=== PATIENT | male | born 1940 | race Caucasian/White ===

== ENCOUNTER 2019-01-06 16:20 | Emergency (ER) | payer MEDICARE ==
[~2019-01-06] VITALS: Ht 185.4 cm; Wt 80.0 kg
[2019-01-06] MEDS ORDERED: normal saline 1000ML IV soln IVB ONE (16:35)
[2019-01-06 16:51] LABS: BASOPHILS % (AUTO) 0.5 % (0-1); EOSINOPHILS # (AUTO) 0.2 X10'3 (0-0.9); EOSINOPHILS % (AUTO) 2.1 % (0-6); HEMATOCRIT 46.9 % (42.0-52.0); LYMPHOCYTES # (AUTO) 1.6 X10'3 (1.1-4.8); LYMPHOCYTES % (AUTO) 20.9 % (21-51); MEAN CORPUSCULAR HEMOGLOBIN 32.5 PG (27.0-31.0); MEAN CORPUSCULAR HGB CONC 34.1 g/dL (33.0-36.5); MEAN CORPUSCULAR VOLUME 95.4 FL (78-98); MONOCYTES # (AUTO) 0.7 X10'3 (0-0.9); MONOCYTES % (AUTO) 9.8 % (2-12); NEUTROPHILS % (AUTO) 66.7 % (42-75); PLATELET COUNT 146 X10'3 (140-440); RED BLOOD COUNT 4.92 X10'6 (4.70-6.10); RED CELL DISTRIBUTION WIDTH 13.3 % (11.5-14.5); WHITE BLOOD COUNT 7.4 X10'3 (4.5-11.0)
[2019-01-06 17:02] LABS: ALANINE AMINOTRANSFERASE 51 U/L (12-78); ALBUMIN 3.6 G/DL (3.4-5.0); ALKALINE PHOSPHATASE 122 IU/L (46-116); ANION GAP 3 (8-16); ASPARTATE AMINO TRANSFERASE 43 U/L (10-37); BILIRUBIN,TOTAL 0.5 MG/DL (0.1-1.0); BLOOD UREA NITROGEN 24 MG/DL (7-18); BUN/CREATININE RATIO 16.8 (5.4-32.0); CALCIUM 10.8 MG/DL (8.5-10.1); CHLORIDE 105 MMOL/L (99-107); CREATININE 1.43 MG/DL (0.60-1.10); PARTIAL THROMBOPLASTIN TIME 26 SECONDS (22-32); POTASSIUM 4.8 MMOL/L (3.5-5.1); SODIUM 136 MMOL/L (135-145); TOTAL CARBON DIOXIDE 27.7 MMOL/L (24-32); TOTAL PROTEIN 7.3 G/DL (6.4-8.2); eGFR 48 ML/MIN
[2019-01-06 17:05] LABS: ETHANOL < 0.010 GM/DL (0.0-0.010); TROPONIN I < 0.04 NG/ML (0.0-0.05)
[2019-01-06 17:07] LABS: GLUCOSE 90 MG/DL (70-104)
[2019-01-06 17:21] LABS: COLOR,URINE YELLOW (Yellow); GLUCOSE, URINE NEGATIVE (Neg); KETONES,URINE NEGATIVE (Neg); LEUKOCYTE ESTERASE ,URINE NEGATIVE (Neg); NITRITES, URINE NEGATIVE (Neg); OCCULT BLOOD,URINE LARGE (Neg); PROTEIN,URINE NEGATIVE (Neg)
[2019-01-06 17:31] LABS: CLARITY,URINE SLIGHTLY CLOUDY (Clear); UA COLLECTION TYPE VOIDED
[2019-01-06 17:32] LABS: RBC,URINE 20-50 /HPF (0-2); WBC,URINE 0-4 /HPF (0-4)
[2019-01-06 17:33] LABS: BACTERIA,URINE NONE SEEN /HPF (Neg); SQUAMOUS EPITHELIAL CELL,UR NONE SEEN /LPF (FEW); URINE AMPHETAMINE SCREEN NEGATIVE (Neg); URINE BARBITUATE SCREEN NEGATIVE (Neg); URINE BENZODIAZEPINES SCREEN NEGATIVE (Neg); URINE CANNABINOID SCREEN NEGATIVE (Neg); URINE COCAINE SCREEN NEGATIVE (Neg); URINE METHADONE SCREEN NEGATIVE (Neg); URINE OPIATE SCREEN NEGATIVE (Neg); URINE PHENCYCLIDINE SCREEN NEGATIVE (Neg)
[2019-01-06] MEDS ORDERED: NITR100C6 PO (18:09)
[2019-01-06 18:21] VITALS: BP 161/104
== END 2019-01-06 18:22 | disposition home or self-care (01) ==
LOC: ER 16:21
DX: R41.0 Disorientation, unspecified (principal); R31.9 Hematuria, unspecified; E78.00 Pure hypercholesterolemia, unspecified; F03.90 Unspecified dementia, unspecified severity, without behavioral disturbance, psychotic disturbance, mood disturbance, and anxiety; E78.5 Hyperlipidemia, unspecified; Z86.73 Personal history of transient ischemic attack (TIA), and cerebral infarction without residual deficits
CPT/HCPCS: 36415; 70450; 71045; 80053; 80305; 80320; 81001; 82140; 82948; 84484; 85025; 85610; 85730; 93005; 99284; J7030